=== PATIENT | male | born 1970 | race Caucasian/White ===

== ENCOUNTER 2020-05-26 06:35 | Day surgery (SDC) | payer OTHER ==
[~2020-05-26] VITALS: Ht 170.2 cm; Wt 89.4 kg
[~2020-05-26 06:35] MED LIST: COZAAR25 MG PO; LIPITOR40 MG PO; PROZAC40 MG PO
--- NOTE | 2020-05-26 08:52 | NUR ---
05/26/20 0852 Stacy Contreras 0810 PT ARRIVED IN PACU WIDE AWAKE WITH NO C/O'S. 0820 AT BEDSIDE TALKING WITH PT. ALL QUESTIONS ANSWERED. 0830 PT DRESSED AND SIPPING ON WATER. 0840 DC INSTRUCTIONS GIVEN. LEFT VIA W/C.
--- NOTE | 2020-05-27 10:42 | PATH ---
[facility] [address] [place], [place] [address] Signed SPECIMEN(S): A TRANSVERSE POLYP SPECIMEN SOURCE: A. TRANSVERSE POLYP CLINICAL HISTORY: Screening colonoscopy. Postop: Polyp. MICROSCOPIC DESCRIPTION: Histologic sections of all submitted blocks are examined by light microscopy. These findings, together with the gross examination, support the pathologic diagnosis. FINAL PATHOLOGIC DIAGNOSIS: Colon, transverse, polyp, polypectomy: - Tubular adenoma. - Negative for high-grade dysplasia or malignancy. NAL:cml:C2NR GROSS DESCRIPTION: The specimen, labeled "RJ, 1," and designated on the requisition "transverse polyp," is received in formalin and consists of one locke soft tissue polypoid fragment that measures 0.5 cm in greatest dimension. The specimen is entirely submitted in cassette (A1). AT (under the direct supervision of a pathologist) The Gross Description was prepared using a voice recognition system. The report was reviewed for accuracy; however, sound-alike word errors, addition and/or deletions may occur. If there is any question about this report, please contact Client Services. PERFORMING LABORATORY: The technical component was performed by [facility], [address] [place] [id number] (Destination Sign Repairer: Grisel Bird MD; CLIA# [id number]). [facility], [address] [place] [id number] (CLIA# [id number]). Diagnostician: Ammy Larios MD Pathologist Electronically Signed 05/27/2020 PATIENT NAME: BROOKE SOTO PATHOLOGY DATE OF : 68 REPORT #: [id number] PHYSICIAN: [facility] PCP: MARIAH DE GUZMAN MD REPORT IS CONFIDENTIAL AND NOT TO BE RELEASED WITHOUT AUTHORIZATION [address] [place], [place] [address] Signed Copies: ~ PATIENT NAME: BROOKE SOTO PATHOLOGY DATE OF : 68 REPORT #: [id number] PHYSICIAN: [facility] PCP: MARIAH DE GUZMAN MD REPORT IS CONFIDENTIAL AND NOT TO BE RELEASED WITHOUT AUTHORIZATION
--- NOTE | 2020-05-27 18:52 | OR ---
[facility] [address] [place], [place] [address] Signed DATE OF OPERATION: 05/26/2020 SURGEON: Kat Sanchez MD PREOPERATIVE DIAGNOSIS: Colon screening. POSTOPERATIVE DIAGNOSIS: Polyp, left transverse colon. PROCEDURE: Total colonoscopy to cecum with cold snare polypectomy x1. ANESTHESIA: Intravenous sedation with fentanyl 100 mcg and Versed 6 mg. INDICATION: This 49-year-old white man is a patient of Dr. 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 He is here for colon screening. He has no symptoms of bleeding diarrhea or constipation. He did require clinical history of "irritable bowel syndrome" in his younger years as manifested by diarrhea. He does have a history of a sister with severe and advanced Crohn disease. He has no family history of colon cancer. He is admitted at this time to undergo colonoscopy. He understands the risks of bleeding, infection, and perforation. FINDINGS: The prep was good. Complete colonoscopy was undertaken to the cecum without question. Good visualization of the ileocecal valve and appendiceal orifice was noted. He had an internal hemorrhoid as well as a single polyp, which was sessile and small in the left transverse colon. This was excised with cold snare technique without problem. PROCEDURE IN DETAIL: The patient was brought to the endoscopy suite and placed in lateral decubitus position, given intravenous sedation to the point of slurred speech and nystagmus. Digital rectal examination was normal. An Olympus video colonoscope was passed in the rectum and manipulated throughout the colon, ultimately intubating the cecum. The ileocecal valve and appendiceal orifice were normal. The scope was withdrawn from that point. Examination throughout showed no sign of abnormality until the left transverse colon, where a 6 to 7 mm polyp was noted. Electronically Signed By: KAT SANCHEZ MD 05/27/20 1852 PATIENT NAME: BROOKE SOTO OPERATIVE REPORT DATE OF : 68 REPORT #: [id number] PHYSICIAN: KAT SANCHEZ MD PCP: MARIAH HOFFMAN MD REPORT IS CONFIDENTIAL AND NOT TO BE RELEASED WITHOUT AUTHORIZATION [facility] [address] [place], [place] [address] Signed This was excised with cold snare technique without problem. This specimen was passed for pathology. The scope was further withdrawn. There were no other findings of concern other than the internal hemorrhoids in the low rectum. The scope was removed and the patient was taken to the recovery room in good condition. CONCLUDING DIAGNOSES: 1. Small polyp, left transverse colon. 2. Internal hemorrhoidal change x1. PLAN: Recommend repeat colonoscopy in 3 years or sooner if clinically indicated. We will recommend high-fiber diet as well. He will return to the ongoing care of Dr. Hoffman. MD SHEILA Wagoner/MODL /[id number] cc: MD Brooke Sargent MD Copies: MARIAH HOFFMAN MD, ROBERT D DMD ~ Electronically Signed By: KAT SANCHEZ MD 08/18/20 1852 PATIENT NAME: BROOKE SOTO OPERATIVE REPORT DATE OF : 68 REPORT #: [id number] PHYSICIAN: KAT SANCHEZ MD PCP: MARIAH HOFFMAN MD REPORT IS CONFIDENTIAL AND NOT TO BE RELEASED WITHOUT AUTHORIZATION
== END 2020-05-26 08:40 | disposition home or self-care (01) ==
LOC: OPS 06:35 → DS 06:35 → OPS 06:45 → DS 06:45 → OPS 08:40
PROVIDERS: Surgery
PROC: 0DBL8ZZ Excision of Transverse Colon, Via Natural or Artificial Opening Endoscopic (ICD-10-PCS; principal; 2020-05-26 06:45)
DX: Z12.11 Encounter for screening for malignant neoplasm of colon (principal); D12.3 Benign neoplasm of transverse colon; K64.8 Other hemorrhoids; I10 Essential (primary) hypertension; Z79.899 Other long term (current) drug therapy
CPT/HCPCS: 99153; G0500; J2250; J3010; J7121

== ENCOUNTER 2023-06-03 09:18 | Day surgery (SDC) | payer OTHER ==
[~2023-06-03] VITALS: Ht 170.2 cm; Wt 88.0 kg
[~2023-06-03 09:18] MED LIST changes: +CANDICIDAL CAP1 EACH PO; +CIALIS5 MG PO; +FLOMAX0.4 MG PO
[2023-06-03 09:27] VITALS: BP 121/83
[2023-06-03] MEDS ORDERED: MAGNESIUM400 MG PO (09:42)
--- NOTE | 2023-06-03 12:04 | NUR ---
06/03/23 1204 Elsie Villagomez 1130- PT ARRIVES TO PACU, LEFT LATERAL POSITION. REACTIVE TO VERBAL STIMULI. PT ENCOURAGED TO PASS GAS. LR INFUSING TO RH IV. O2 AT 2L VIA NC. 1150- PT MOVED TO ROOM AIR, TOLERATING WELL. CONTINUE TO MONITOR. PT REMAINS RESPONSIVE TO VERBAL STIMULI. 1200- 2ND LITER LR STARTED, BP 99/68 AFTER 1ST LITER COMPLETED. PT RESTING ON LEFT SIDE, CONTINUE TO MONITOR.
[2023-06-03 12:19] VITALS: BP 107/68
--- NOTE | 2023-06-04 12:35 | OR ---
[facility] [address] [place], [place] [address] Signed DATE OF OPERATION: 06/03/2023 SURGEON: Kat Sanchez MD PREOPERATIVE DIAGNOSIS: History of transverse colon tubular adenoma in 2019. POSTOPERATIVE DIAGNOSIS: Sessile adenomatous polyp at 18 cm (excised). PROCEDURE: Total colonoscopy to cecum with hot snare polypectomy x1. ANESTHESIA: Intravenous sedation, fentanyl 150 mcg and Versed 7 mg. 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 He underwent colonoscopy by me in 2019, which showed a transverse colon polyp, which was a tubular adenoma and was completely excised. He is here at this time to undergo surveillance colonoscopy. He understand the risk of bleeding, infection, and perforation. He has no symptoms related to the colon and no family history of colon cancer. FINDINGS: The prep was good. Complete colonoscopy was undertaken to the cecum with full intubation of the cecum. The only finding was a sessile polyp approximately 1 cm in the rectosigmoid at 18 cm. It was excised with hot snare polypectomy technique without problem. DESCRIPTION OF PROCEDURE: The patient was brought to the endoscopy suite and placed in lateral decubitus position given intravenous sedation to the point of slurred speech and nystagmus. Full cardiopulmonary monitoring was maintained. Digital rectal examination showed a normal prostate. An Olympus video colonoscope was passed into the rectum and manipulated throughout the colon ultimately intubating the cecum itself. The ileocecal valve and appendiceal orifice were normal. The scope was withdrawn from that point and examination throughout showed no sign of abnormality until approximately 18 cm from the anal canal, where a sessile adenomatous-appearing polyp was noted. This was excised with hot snare technique without problem. The specimen was passed for Pathology, it was Electronically Signed By: KAT SANCHEZ MD 06/04/23 1235 PATIENT NAME: BROOKE SOTO JR OPERATIVE REPORT DATE OF : 68 REPORT #: [id number] PHYSICIAN: KAT SANCHEZ MD PCP: DOROTHY CORTES MD REPORT IS CONFIDENTIAL AND NOT TO BE RELEASED WITHOUT AUTHORIZATION [facility] [address], [place] [address] Signed less than a centimeter in size. Retroflexed view was otherwise normal. The scope was removed, and the patient was taken to the recovery room in good condition. CONCLUDING DIAGNOSIS: Polyps x1. PLAN: Recommend repeat colonoscopy in 3-5 years or sooner if symptoms should develop. He will return to the ongoing care of Dr. Dorothy Cortes otherwise. MD SHEILA Wagoner/BRIDGETTE /[id number] cc: Dr. Dorothy Cortes Copies: ~ Electronically Signed By: KAT SANCHEZ MD 06/04/23 1235 PATIENT NAME: BROOKE SOTO JR OPERATIVE REPORT DATE OF : 68 REPORT #: [id number] PHYSICIAN: KAT SANCHEZ MD PCP: DOROTHY CORTES MD REPORT IS CONFIDENTIAL AND NOT TO BE RELEASED WITHOUT AUTHORIZATION
--- NOTE | 2023-06-07 19:54 | PATH ---
[facility] [address] [place], [place] [address] Signed SPECIMEN(S): A RECTOSIGMOID POLYP AT 18 CM SPECIMEN SOURCE: A. RECTOSIGMOID POLYP AT 18 CM CLINICAL HISTORY: Pre: History of tubular adenoma (2019). Post: Internal hemorrhoids and polyp x1 at 18 cm. FINAL PATHOLOGIC DIAGNOSIS: Colon, rectosigmoid polyp at 18 cm, polypectomy: - Tubulovillous adenoma, absent at the inked polyp margin. NRT MICROSCOPIC EXAMINATION: Histologic sections of all submitted blocks are examined by light microscopy. These findings, together with the gross examination, support the pathologic diagnosis. GROSS DESCRIPTION: The specimen, labeled and designated "Ana Orozco, colon rectosigmoidal polypectomy at 18 cm," is received in formalin and consists of one brown soft polypoid tissue fragment measuring 0.8 x 0.6 x 0.6 cm. Resection margin is inked blue specimen is trisected and submitted entirely in (A1). MMA (under the direct supervision of a pathologist) The Gross Description was prepared using a voice recognition system. The report was reviewed for accuracy; however, sound-alike word errors, addition and/or deletions may occur. If there is any question about this report, please contact Client Services. PERFORMING LABORATORY: Technical component was performed by [facility], [address] [place] [address] (CLIA# [id number]). Professional interpretation was performed by [facility], [address], [place] [address] (CLIA# [id number]). Diagnostician: Allison Bullock MD Pathologist Electronically Signed 06/07/2023 PATIENT NAME: BROOKE OROZCO JR PATHOLOGY DATE OF : 68 REPORT #: [id number] PHYSICIAN: [facility] PCP: YOANNA CORTES MD REPORT IS CONFIDENTIAL AND NOT TO BE RELEASED WITHOUT AUTHORIZATION [address] [address] Signed Copies: ~ PATIENT NAME: BROOKE OROZCO JR PATHOLOGY DATE OF : 68 REPORT #: [id number] PHYSICIAN: [facility] PCP: YOANNA CORTES MD REPORT IS CONFIDENTIAL AND NOT TO BE RELEASED WITHOUT AUTHORIZATION
== END 2023-06-03 12:33 | disposition home or self-care (01) ==
LOC: OPS 09:18 → DS 09:20 → OPS 10:25 → DS 10:25 → OPS 12:33
PROVIDERS: ATTEND Surgery
PROC: 0DBN8ZZ Excision of Sigmoid Colon, Via Natural or Artificial Opening Endoscopic (ICD-10-PCS; principal; 2023-06-03 10:25)
DX: Z12.11 Encounter for screening for malignant neoplasm of colon (principal); Z86.010 Personal history of colon polyps; Z83.79 Family history of other diseases of the digestive system; I10 Essential (primary) hypertension; Z88.2 Allergy status to sulfonamides; D12.5 Benign neoplasm of sigmoid colon
CPT/HCPCS: 99153; G0500; J2250; J3010; J7121